=== PATIENT | male | born 1980 | race Caucasian/White ===

== ENCOUNTER → 2021-09-24 | Outpatient (CLI) | payer OTHER | LOC: M.RAD 13:56 | PROVIDERS: ATTEND Internal Medicine Critical Care Medicine | DX: R06.02 Shortness of breath (principal); R01.1 Cardiac murmur, unspecified ==

== ENCOUNTER → 2021-11-10 | Outpatient (CLI) | payer OTHER ==
--- NOTE | 2021-11-10 15:30 | 2DMMODE ---
[place] [address] 2 D/M-MODE ECHOCARDIOGRAM Name: CYDNEY RED Room: [facility]#: [id number] Admission: 11/10/21 Attend Phys: Lalito Gandara MD Discharge: Date of : 78 Date of Service: 11/10/21 1530 Report #: [id number] THIS REPORT FOR: cc: RAMSEY CAMPO,RAMSEY Varma,Diogo Morrell MD [facility] ~ APPROVED REPORT Study performed: 11/10/2021 15:31:35 EXAM: Comprehensive 2D, Doppler, and color-flow Echocardiogram Patient Location: Out-Patient BSA: 2.17 HR: 85 bpm BP: 132/98 mmHg Other Information Study Quality: Good Indications Murmur Dyspnea 2D Dimensions IVSd: 13.64 (7-11mm) LVOT Diam: 19.74 (18-24mm) LVDd: 41.16 mm PWd: 11.72 (7-11mm) Ascending Ao: 29.60 (22-36mm) LVDs: 28.89 (25-40mm) Aortic Root: 29.11 mm Volumes Left Atrial Volume (Systole) LA ESV Index: 15.70 mL/m2 Aortic Valve AoV Peak Sha.: 1.48 m/s AO Peak Gr.: 8.75 mmHg LVOT Max P.26 mmHg AO Mean Gr.: 5.02 mmHg LVOT Mean P.42 mmHg LVOT Max V: 1.52 m/s AO V2 VTI: 25.75 cm LVOT Mean V: 0.96 m/s VENTURA (VTI): 3.12 cm2 LVOT V1 VTI: 26.21 [place] [address] 2 D/M-MODE ECHOCARDIOGRAM Name: NEDACYDNEY Room: [facility]#: [id number] Admission: 11/10/21 Attend Phys: Lalito Gandara MD Discharge: Date of : 78 Date of Service: 11/10/21 1530 Report #: [id number] E/A Ratio: 1.24 MV Decel. Time: 180.26 ms MV E Max Sha.: 0.72 m/s MV PHT: 52.28 ms MVA (PHT): 4.21 cm2 TDI E/Lateral E': 6.00 E/Medial E': 8.00 Medial E' Sha.: 0.09 m/s Lateral E' Sha.: 0.12 m/s Pulmonary Valve PV Peak Sha.: 1.07 m/s PV Peak Gr.: 4.55 mmHg Tricuspid Valve RAP Estimate: 5.00 mmHg TR Peak Gr.: 15.68 mmHg RVSP: 20.68 mmHg PA Pressure: 20.68 mmHg Left Ventricle The left ventricle is normal size. There is normal LV segmental wall motion. Mild concentric left ventricular hypertrophy. Left ventricular systolic function is normal. The left ventricular ejection fraction is within the normal range. LVEF is 55-60%. The left ventricular diastolic function is normal. Right Ventricle The right ventricle is normal size. The right ventricular systolic function is normal. Atria The left atrium size is normal. The right atrium size is normal. Aortic Valve The aortic valve is normal in structure. No aortic regurgitation is present. There is no aortic valvular stenosis. Mitral Valve The mitral valve is normal in structure. Mild mitral regurgitation. No evidence of mitral valve stenosis. Tricuspid Valve The tricuspid valve is normal in structure. [place] [address] 2 D/M-MODE ECHOCARDIOGRAM Name: CYDNEY RED Room: [facility]#: [id number] Admission: 11/10/21 Attend Phys: Lalito Gandara MD Discharge: Date of : 78 Date of Service: 11/10/21 1530 Report #: [id number] Pulmonic Valve The pulmonary valve is normal in structure. There is no pulmonic valvular regurgitation. Great Vessels The aortic root is normal in size. IVC is normal in size and collapses >50% with inspiration. Pericardium There is no pericardial effusion. <Conclusion> Mild concentric left ventricular hypertrophy. LVEF is 55-60%. Mild mitral regurgitation. <ELECTRONICALLY SIGNED> By: Diogo Varma MD, [facility] 11/10/21 1530 1530 1530 Diogo Varma MD, FAC /INF
--- NOTE | 2021-11-18 19:29 | PF ---
[address] [address] PULMONARY FUNCTION REPORT Name: CYDNEY RED Room: [facility].#: [id number] Admission: 11/10/21 Attend Phys: Lalito Gandara MD Discharge: Date of : 78 Report #: [id number] THIS REPORT FOR: cc: RAMSEY CAMPO,RAMSEY Gandara,Lalito OLSON ~ DATE OF VISIT: 11/10/2021 INTERPRETATION: The FEV1/FVC ratio is normal at 72% with an FVC normal at 81%. The FEV1 is mildly decreased to 74%. The FEF 25-75 is decreased to 58%. After the administration of a bronchodilator, there is an 11% increase in FEV1 to 3.11 liters postbronchodilator. This is just below criteria for reversibility. The total lung capacity is normal at 92% with residual volume normal at 105%. The DLCO as adjusted for hemoglobin is normal at 98%. IMPRESSION: 1. There is a mild reduction in FEV1 and FEF 25-75 on spirometry. Other values on spirometry are normal. This is likely due to underlying mild obstruction. There is improvement after the administration of albuterol, which is just below criteria for reversibility. 2. Normal lung volumes. 3. Normal DLCO. <ELECTRONICALLY SIGNED> By: Lalito Gandaar MD 11/18/21 1929 1621 [id number] juliana Dennis
== END ==
LOC: M.CRD 09-25 13:48 → M.PUL 10-27 13:30 → M.CRD 10-27 14:00 → M.PUL 13:12
PROVIDERS: ATTEND Internal Medicine Critical Care Medicine
DX: R06.02 Shortness of breath (principal); R01.1 Cardiac murmur, unspecified; Z87.891 Personal history of nicotine dependence